=== PATIENT | female | born 1960 | race American Indian/Alaskan Native ===

== ENCOUNTER 2016-10-16 17:06 | Emergency (ER) | payer MEDICARE ==
[2016-10-16 17:25] VITALS: BP 222/117
== END 2016-10-16 21:15 | disposition left against medical advice (07) ==
LOC: ED 17:06
DX: R51 Headache (principal); M54.5 Low back pain; I10 Essential (primary) hypertension; M19.90 Unspecified osteoarthritis, unspecified site; V89.2XXA Person injured in unspecified motor-vehicle accident, traffic, initial encounter; Y93.89 Activity, other specified; Y99.9 Unspecified external cause status; Y92.410 Unspecified street and highway as the place of occurrence of the external cause; Z53.21 Procedure and treatment not carried out due to patient leaving prior to being seen by health care provider

== ENCOUNTER 2017-01-29 05:13 | Inpatient (IN) | payer MEDICARE ==
[2017-01-29] MEDS ORDERED: CARDIZEM ONE (05:20)
[2017-01-29] MEDS ORDERED: CARDIZEM IV ONE ×2 (05:24→07:02)
--- NOTE | 2017-01-29 05:33 | Emergency Department Report ---
ED Palpitations HPI - General Chief Complaint: Chest Pain Stated Complaint: PALPITATIONS Time Seen by Provider: 01/29/17 05:23 Source: patient, EMS, old records reviewed (previous ER visits no previous admission or cardiac workup other than the EKG available for review) Mode of arrival: Stretcher Limitations: No Limitations - History of Present Illness Initial Comments: 56 year old female with a past medical history hypertension presents to the hospital complaining of palpitations and shortness of breath. Patient has been having intermittent palpitations for the last 3 days. This morning she woke up from sleep with sudden worsening of symptoms. Positive associated shortness of breath, palpitations, and mild headache reported. Patient denies chest pain, nausea, vomiting, or diaphoresis. Denies previous history of arrhythmia or cardiac disease. - Related Data Home Medications Medication Instructions Recorded Confirmed Last Taken Gabapentin [Neurontin] 1 cap PO QAM 01/29/17 01/29/17 Unknown Gabapentin [Neurontin] 2 cap PO QPM 01/29/17 01/29/17 Unknown Ibuprofen [Motrin] 800 mg PO Q8HR PRN 01/29/17 01/29/17 Unknown Nortriptyline [Pamelor] 50 mg PO QAM 01/29/17 01/29/17 Unknown Nortriptyline [Pamelor] 100 mg PO QPM 01/29/17 01/29/17 Unknown Oxycodone HCl [oxyCODONE TAB] 10 mg PO BID PRN 01/29/17 01/29/17 Unknown Allergies Allergy/AdvReac Type Severity Reaction Status Date / Time No Known Allergies Allergy Verified 01/29/17 05:27 ED Review of Systems ROS: Stated complaint: PALPITATIONS Other details as noted in HPI Comment: All other systems reviewed and negative Other: Constitutional: No fevers chills Eyes: No eye pain visual changes ENT: No ear pain or throat pain Neck: Denies pain Respiratory: Denies cough wheezing shortness of breath Cardiovascular: Denies chest pain, palpitations, syncope GI: Denies abdominal pain, nausea, vomiting, diarrhea : Denies dysuria Musculoskeletal: Denies back pain Skin: Denies rash, lesions, erythema Neurologic: Denies headache, numbness, weakness Psychiatric: Denies suicidal ideation, hallucinations ED Past Medical Hx - Past Medical History Previous Medical History?: Yes Hx Hypertension: Yes (nonconpliant with meds) Additional medical history: Degenerative disc disease, arthritis - Surgical History Past Surgical History?: Yes Hx Appendectomy: Yes Additional Surgical History: Tubaligation and Uterine fibroids removed - Social History Smoking Status: Never Smoker Substance Use Type: Alcohol - Medications Home Medications: Home Medications Medication Instructions Recorded Confirmed Last Taken Type Gabapentin [Neurontin] 1 cap PO QAM 01/29/17 01/29/17 Unknown History Gabapentin [Neurontin] 2 cap PO QPM 01/29/17 01/29/17 Unknown History Ibuprofen [Motrin] 800 mg PO Q8HR PRN 01/29/17 01/29/17 Unknown History Nortriptyline [Pamelor] 50 mg PO QAM 01/29/17 01/29/17 Unknown History Nortriptyline [Pamelor] 100 mg PO QPM 01/29/17 01/29/17 Unknown History Oxycodone HCl [oxyCODONE TAB] 10 mg PO BID PRN 01/29/17 01/29/17 Unknown History ED Physical Exam - General Limitations: No Limitations - Other Other exam information: General: No limitations, patient is alert in no acute distress Head exam: Atraumatic, normocephalic Eyes exam: Normal appearance, pupils equal reactive to light, extraocular movements intact ENT: Moist mucous membrane, normal oropharynx Neck exam: Normal inspection, full range of motion, no meningismus nontender Respiratory exam: Clear to auscultation bilateral, no wheezes, rales, crackles Cardiovascular: Tachycardic regular rate Abdomen: Soft, nondistended, and nontender, with normal bowel sounds, no rebound, or guarding Extremity: Full range of motion normal inspection no deformity Back: Normal Inspection, full range of motion, no tenderness Neurologic: Alert, oriented x3, cranial nerves intact, no motor or sensory deficit Psychiatric: normal affect, normal mood Skin: Warm, dry, intact ED Course Vital Signs 01/29/17 01/29/17 05:16 05:27 Pulse Rate 150 H 152 H Respiratory 20 Rate Blood Pressure 169/124 167/111 O2 Sat by Pulse 99 Oximetry - Reevaluation(s) Reevaluation #1: 01/29/17 05:32 Patient received Cardizem 20 mg bolus with improvement in heart rate EKG ordered - Consultations Consultation #1: 01/29/17 05:50 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 Lainez Recommend Lovenox for DVT prophylaxis versus treatment since patient is not currently in afib/flutter. Will consult ED Medical Decision Making - Lab Data Result diagrams: 01/29/17 05:29 01/29/17 05:29 Lab Results 01/29/17 01/29/17 01/29/17 Range/Units 05:29 05:29 05:29 WBC 13.4 H (4.5-11.0) K/mm3 RBC 4.92 (3.65-5.03) M/mm3 Hgb 13.0 (10.1-14.3) gm/dl Hct 40.0 (30.3-42.9) % MCV 81 (79-97) fl MCH 26 L (28-32) pg MCHC 33 (30-34) % RDW 14.5 (13.2-15.2) % Plt Count 331 (140-440) K/mm3 Lymph % (Auto) 25.5 (13.4-35.0) % Giles % (Auto) 7.1 (0.0-7.3) % Eos % (Auto) 1.4 (0.0-4.3) % Baso % (Auto) 0.7 (0.0-1.8) % Lymph # 3.4 (1.2-5.4) K/mm3 Giles # 0.9 H (0.0-0.8) K/mm3 Eos # 0.2 (0.0-0.4) K/mm3 Baso # 0.1 (0.0-0.1) K/mm3 Seg Neutrophils % 65.3 (40.0-70.0) % Seg Neutrophils # 8.8 H (1.8-7.7) K/mm3 PT 13.3 (12.2-14.9) Sec. INR 0.96 (0.87-1.13) APTT 28.3 (24.2-36.6) Sec. Sodium 139 (137-145) mmol/L Potassium 3.5 L (3.6-5.0) mmol/L Chloride 99.0 (98-107) mmol/L Carbon Dioxide 25 (22-30) mmol/L Anion Gap 19 mmol/L BUN 25 H (7-17) mg/dL Creatinine 0.9 (0.7-1.2) mg/dL Estimated GFR > 60 ml/min BUN/Creatinine Ratio 27.77 % Glucose 119 H (65-100) mg/dL Calcium 9.8 (8.4-10.2) mg/dL Magnesium 1.80 (1.7-2.3) mg/dL Total Creatine Kinase 247 H (30-135) units/L CK-MB (CK-2) 3.5 (0.0-4.0) ng/mL CK-MB (CK-2) Rel Index 1.4 (0-4) - EKG Data -: EKG Interpreted by Me (A flutter 2-1 block rate [address] elevation ID) - EKG Data When compared to previous EKG there are: changes noted (compared to 01/19/2015 sinus rhythm) 01/29/17 05:43 EKG status post cardizem 20mg shows sinus rhythm rate 85 with LVH and nonspecific T-wave abnormality. - Radiology Data Radiology results: image reviewed (chest x-ray: No acute findings read by me) - Medical Decision Making Plan today patient to hospital further cardiac evaluation. Dr. Jefferson informed. - Differential Diagnosis A. fib, a flutter, sinus tach, SVT, thyroid disease, heart disease Critical Care Time: No Critical care attestation.: If time is entered above; I have spent that time in minutes in the direct care of this critically ill patient, excluding procedure time. ED Disposition Clinical Impression: Atrial flutter with rapid ventricular response, HTN (hypertension) Disposition: OP ADMIT IP TO THIS HOSP Is pt being admited?: Yes Does the pt Need Aspirin: No Condition: Stable Time of Disposition: 05:54 (Dr Jefferson/hosp)
[2017-01-29 05:45] LABS: Basophils % (Auto) 0.7 % (0.0-1.8); Eosinophils % (Auto) 1.4 % (0.0-4.3); Mean Corpuscular HGB Conc 33 % (30-34); Mean Corpuscular Hemoglobin 26 pg (28-32); Mean Corpuscular Volume 81 fl (79-97); Platelet Count 331 K/mm3 (140-440); Red Blood Count 4.92 M/mm3 (3.65-5.03); Red Cell Distribution Width 14.5 % (13.2-15.2); White Blood Count 13.4 K/mm3 (4.5-11.0)
[2017-01-29 05:54] LABS: INR 0.96 (0.87-1.13)
[2017-01-29 05:55] LABS: Partial Thromboplastin Time 28.3 Sec. (24.2-36.6)
[2017-01-29] MEDS ORDERED: CARDIZEM/D5W 100MG/100ML 100 MG/100 ML BAG IV SCH (06:00)
[2017-01-29 06:03] LABS: Creatine Kinase MB 3.5 ng/mL (0.0-4.0)
[2017-01-29 06:04] LABS: Anion Gap 19 mmol/L; BUN/Creatinine Ratio 27.77; Blood Urea Nitrogen 25 mg/dL (7-17); Calcium 9.8 mg/dL (8.4-10.2); Carbon Dioxide 25 mmol/L (22-30); Creatine Kinase 247 units/L (30-135); Glucose 119 mg/dL (65-100); Potassium 3.5 mmol/L (3.6-5.0); Sodium 139 mmol/L (137-145)
--- NOTE | 2017-01-29 07:27 | Admit Criteria Form ---
Admission Criteria Documentation: CARDIOLOGY GRG Clinical Indications for Admission to Inpatient Care ( Place 'X' for any and all applicable criteria): Hospital admission is needed for appropriate care of the patient because of ANY ONE of the following (1): [ ] I. Hemodynamic instability as indicated by ALL of the following (1)(2)(3) (4)(5) [ ]a) Vital signs or other findings not as expected for chronic patient condition or baseline [ ]b) Instability indicated by ANY ONE of the following: [ ]i) Hypotension [ ]ii) Symptomatic Tachycardia unresponsive to treatment ( e.g., analgesia, fluids, sedation as indicated) [ ]iii) Inadequate perfusion indicated by ANY ONE of the following: [ ] 1) Lactic acidosis (> 2 mmol/L) [ ] 2) New abnormal capillary refill (> 3 seconds) [ ] 3) Reduced urine output [ ] 4) New altered mental status [ ]iv) Orthostatic vital sign changes unresponsive to treatment (e.g., fluids) [ ]v) IV inotropic or vasopressor medication required to maintain adequate blood pressure or perfusion [ ] II. Severe heart failure as indicated by ANY ONE of the following(17)(18) [ ]a) Respiratory distress [ ]b) Hypotension [ ]c) Anasarca (refractory to outpatient therapy) [ ]d) Cardiac arrhythmias of immediate concern [ ]e) Myocardial ischemia [X] III. Cardiac arrhythmias or findings of immediate concern indicated by ANY ONE of the following (19)(20): [ ] a) Heart rhythms that are inherently dangerous or unstable indicated by ANY ONE of the following (21)(22)(23): [ ] i) Resuscitated ventricular fibrillation or cardiac arrest [ ] ii) Ventricular escape rhythm [ ] iii) Sustained ventricular tachycardia (30 seconds or more of ventricular rhythm at greater than 100 beats per minute) [ ] iv) Nonsustained ventricular tachycardia and ANY ONE of the following: [ ] 1) Suspected cardiac ischemia as cause or consequence of ventricular tachycardia [ ] 2) In setting of acute myocarditis [ ] b) Unstable cardiac conduction defects indicated by ANY ONE of the following(23)(24)(25) [ ] i) Type II second-degree atrioventricular block [ ]ii) Third-degree atrioventricular block [ ]iii) New-onset left bundle branch block with suspected myocardial ischemia [X]c) Any heart rhythm and ANY ONE of the following (21)(22)(26)(27) (28) [X] i) Continuous long-term ECG monitoring needed (e.g., initiation of drug requiring monitoring for more than 24 hours) [ ] ii) Patient has automatic implanted cardioverter defibrillator that is repeatedly firing, malfunctioning, or in need of immediate adjustment of settings beyond the scope of ambulatory or observation care [ ]d) Heart rhythms of concern due to ANY ONE of the following: [ ] i) Hypotension [ ] ii) Respiratory distress [ ] iii) Association with other significant symptoms (e.g., bradycardia with syncope or ongoing dizziness, supraventricular tachycardia with chest pain (14)(15)(17) [ ] IV. Monitoring for cardiac contusion beyond the scope of observation care needed [A](30)(31)(32) [ ] V. Surgical or device complication (e.g., valve replacement complication , pacemaker dysfunction) (35)(41)(44)(45)(46) [ ] . Inpatient palliative care needed. [B](49) Also use Inpatient Palliative Care Criteria [ ] VII. Nonbacterial thrombotic (marantic) endocarditis (36)(43)(47)(48) [ ] VIII. Cardiology condition, symptom, or finding for which emergency and observation care has failed or are not considered appropriate. [ ] IX. Acute valvular disease requiring inpatient as indicated by ANY ONE of the following (41) [ ]a) Acute valvular regurgitation (42) [ ]b) Noninfectious valvulitis (43) [ ]c) Obstructive valve thrombosis [ ]d) Paravalvular leak [ ]e) Other significant valvular disorder remaining after emergency or observation level of care (as appropriate) [ ]X. Pericardial disease requiring inpatient treatment as indicated by ANY ONE of the following (33)(34)(35)(36)(37) [ ]a) Suspected tamponade (38)(39)(40) [ ]b) Hemopericardium [ ]c) Other significant pericardial disorder remaining after emergency or observation level of care (as appropriate) [ ] XI. Cardiac ischemia beyond scope of emergency and observation care. [ ] XII. Hypertension requiring inpatient treatment as indicated by ANY ONE of the following (6)(7)(8) [ ]a) SBP greater than 220 mm Hg or DBP greater than 120 mmHg despite treatment [ ]b) SBP greater than 140 mm Hg or DBP greater than 100 mm Hg with evidence of acute end organ damage as indicated by ANY ONE of the following [ ] i) Altered mental status [ ] ii) Acute renal failure as indicated by new onset of ANY ONE of the following (9)(10)(11)(12)(13) [ ]1) 3-fold rise in serum creatinine from baseline [ ]2) Serum creatinine greater than 4 mg/dL ( 354 micromoles/L) with acute rise greater than 0.5 mg/dL (44.2 micromoles/L) [ ]3) Reduction of more than 75% in estimated glomerular filtration rate from baseline [ ]4) Estimated glomerular filtration rate less than 35 mL/min/1.73m2 (0.59 mL/sec/1.73m2) in child up to 18 years of age [ ]5) Cessation of urine output indicated by ALL of the following [ ]A. Adequate volume status [ ]B. Inadequate urine output as indicated by ANY ONE of the following [ ]a. Urine output less than 0.3 mL/kg/hr for 24 hours [ ]b. Anuria (urine output less than 0.1 mL/kg/hr) for 12 hours [ ] iii) Aortic dissection [ ] iv) Myocardial Ischemia [ ] v) Left ventricular heart failure [ ]vi) Retinal Hemorrhage [ ]vii) Other significant finding [ ]c) Hypertension in child requiring inpatient treatment as indicated by ALL of the following(14)(15)(16) [ ] i) Outpatient treatment not effective, not available, or not appropriate [ ]ii) SBP or DBP greater than 95th percentile for age [ ]iii) Evidence of acute end organ damage as indicated by ANY ONE of the following [ ]1) Altered mental status [ ]2) Acute renal failure as indicated by new onset of ANY ONE of the following(9)(10)(11)(12)(13) [ ]A. 3-fold rise in serum creatinine from baseline [ ]B. Serum creatinine greater than 4 mg/dL (354 micromoles/L) with acute rise greater than 0.5 mg/dL (44.2 micromoles/L) [ ]C. Reduction of more than 75% in estimated glomerular filtration rate from baseline [ ]D. Estimated glomerular filtration rate less than 35 mL/min/1.73m2 (0.59 mL/sec/1.73m2) in child up to 18 years of age [ ]E. Cessation of urine output indicated by ALL of the following [ ]a. Adequate volume status [ ]b. Inadequate urine output as indicated by ANY ONE of the following [ ]i) Urine output less than 0.3 mL/kg/hr for 24 hours [ ]ii) Anuria ( urine output less than 0.1 mL/kg/hr) for 12 hours [ ]3) Severe headache [ ]4) Visual disturbance [ ]5) Retinal hemorrhage [ ]6) Other significant finding [ ]XIII. Complications of transplanted heart indicated by ANY ONE of the following(61): [ ]a) Acute graft rejection requiring inpatient management (eg, intravenous immunosuppression)(62)(63) [ ]b) Acute graft heart failure indicated by ANY ONE of the following(64): [ ]i) Hemodynamic instability [ ]ii) Cardiac arrhythmias of immediate concern [ ]iii) Pulmonary edema that is very severe (eg, mechanical ventilation needed, imminent or likely, need for 100% oxygen to keep oxygen saturation above 90%) [ ]iv) Pulmonary edema that is persistent as indicated by ALL of the following: [ ]1) New need for oxygen therapy to keep oxygen saturation above 90% (or increased FiO2 need from baseline) [ ]2) Has not improved sufficiently with emergency department or observation care IV diuretics or other heart failure treatments[E] [ ]v) Altered mental status that is severe or persistent [ ]vi) Increased creatinine (new on laboratory test) with reduction of more than 50% in estimated glomerular filtration rate from baseline [ ]vii) Progressively (ongoing) rising creatinine (known from past laboratory test) with reduction of more than 25% in estimated glomerular filtration rate from baseline [ ]viii) Acute renal failure [ ]ix) Acute peripheral ischemia (eg, examination shows pulseless, cool, mottled, or cyanotic extremity) [ ]x) Pulmonary artery catheter monitoring needed [ ]xi) Other sign or symptom of heart failure requiring inpatient treatment (ie, too severe or not responsive to outpatient and observation care treatment) [ ]c) Infection requiring inpatient management (eg, Hemodynamic instability, need for intravenous antimicrobial treatment)(66)(67)(68)(69)(70) [ ]d) Cardiac allograft vasculopathy requiring inpatient management ( eg evidence of cardiac ischemia)(71) [ ]e) Other complication of transplanted heart (eg, stroke, severe pulmonary hypertension, severe valvular dysfunction) requiring inpatient management(72) The original [facility] [employer] content created by [facility] [employer] has been revised. The portions of the content which have been revised are identified through the use of italic text or in bold, and [facility] ([facility]) has neither reviewed nor approved the modified material. All other unmodified content is copyright [facility] [employer]. Please see references footnoted in the original [facility] [employer] edition 2016 Admission Criteria Met: Yes
[2017-01-29] MEDS ORDERED: TYLENOL PO PRN (07:58)
[2017-01-29] MEDS ORDERED: DULCOLAX PR PRN (07:58)
[2017-01-29] MEDS ORDERED: ZOFRAN IV PRN (07:58)
--- NOTE | 2017-01-29 08:01 | History and Physical Report ---
<BAUDILIO MEEK - Last Filed: 01/29/17 09:26> History of Present Illness Date of examination: 01/29/17 Date of admission: 01/29/2017 Chief complaint: Shortness of breath History of present illness: Patient is 56 years old, female with past medical history of hypertension, spinal stenosis who presents to the hospital complaining of palpitations and shortness of breath. Patient has been having intermittent palpitations for the last three days. Patient states that with 3 days of worsening dyspnea on light exertion. Just over 3 days ago the patient was at her normal baseline state of health. Now she has had progressive worsening of her dyspnea on exertion (CARRILLO) to where she cannot walk across a room or talk while sitting up without becoming short of breath. Patient states that this morning around 4:00 Am she awoke free of pain, however upon walking to the bathroom, her shortness of breath increased in severity, she could not catch her breath and got worried and called 911 and they EMS brought her to the emergency room. Her shortness of breath with associated with heart palpitations , and mild headache reported. She denies syncope, or recent chest pains. She denied nausea, vomiting, diaphoresis, dizziness, or loss of consciousness. She carrillo not take anything to relief her shortness of breath. Her electrocardiogram on presentation showed A-flutter 2-1 block rate [address] elevation [place]. Patient given 20mg IV Cardizem and converted to sinus rhythm rate 85 with LVH and nonspecific T-wave abnormality. Past History Past Medical History: hypertension, other (Spinal stenosis ) Past Surgical History: No surgical history Social history: Lives alone. denies: smoking, alcohol abuse Family history: hypertension Medications and Allergies Allergies Allergy/AdvReac Type Severity Reaction Status Date / Time No Known Allergies Allergy Verified 01/29/17 05:27 Home Medications Medication Instructions Recorded Confirmed Last Taken Type Gabapentin [Neurontin] 1 cap PO QAM 01/29/17 01/29/17 Unknown History Gabapentin [Neurontin] 2 cap PO QPM 01/29/17 01/29/17 Unknown History Ibuprofen [Motrin] 800 mg PO Q8HR PRN 01/29/17 01/29/17 Unknown History Nortriptyline [Pamelor] 50 mg PO QAM 01/29/17 01/29/17 Unknown History Nortriptyline [Pamelor] 100 mg PO QPM 01/29/17 01/29/17 Unknown History Oxycodone HCl [oxyCODONE TAB] 10 mg PO BID PRN 01/29/17 01/29/17 Unknown History Active Meds: Active Medications Diltiazem HCl (Cardizem) 60 mg PO Q8HR [facility] Gabapentin (Neurontin) mg PO QAM [facility] Nortriptyline HCl (Pamelor) 50 mg PO QAM [facility] Review of Systems Constitutional: no weight gain, no fever, no chills Ears, nose, mouth and throat: no ear discharge, no tinnitis, no decreased hearing, no nose pain Breasts: no change in shape, no swelling Cardiovascular: lightheadedness, shortness of breath, dyspnea on exertion, paroxysmal nocturnal dyspnea, no orthopnea, no palpitations Respiratory: shortness of breath, no cough, no cough with sputum, no excessive sputum, no hemoptysis Gastrointestinal: no abdominal pain, no nausea, no vomiting, no diarrhea Genitourinary Female: no pelvic pain, no flank pain, no menorrhagia, no dysuria Menstruation: no currently menstrual, no premenarcheal, no post hysterectomy, no ammenorrhea Rectal: no pain, no incontinence Musculoskeletal: no neck stiffness, no neck pain, no shooting arm pain Integumentary: no rash, no pruritis, no redness, no sores Neurological: no paralysis, no weakness, no parathesias, no numbness, no tingling Psychiatric: no anxiety, no memory loss, no change in sleep habits, no sleep disturbances, no insomnia Endocrine: no cold intolerance, no heat intolerance, no polyphagia, no excessive thirst Hematologic/Lymphatic: no easy bruising, no easy bleeding Allergic/Immunologic: no urticaria, no allergic rhinitis, no wheezing Exam - Constitutional Vitals: Temp Pulse Resp BP Pulse Ox 83 17 178/94 100 01/29/17 07:00 01/29/17 07:00 01/29/17 07:00 01/29/17 07:00 General appearance: Present: no acute distress - EENT Eyes: Present: PERRL, EOM intact ENT: hearing intact, clear oral mucosa, dentition normal - Neck Neck: Present: supple - Respiratory Respiratory effort: normal Respiratory: bilateral: CTA - Cardiovascular Heart rate: 135 Rhythm: irregularly irregular - Extremities Extremities: no ischemia, No edema Peripheral Pulses: within normal limits - Abdominal General gastrointestinal: Present: soft, non-tender Female genitourinary: Present: deferred - Rectal Rectal Exam: deferred - Integumentary Integumentary: Present: clear, warm, dry - Musculoskeletal Musculoskeletal: strength equal bilaterally - Psychiatric Psychiatric: appropriate mood/affect - Neurologic Neurologic: CNII-XII intact - Allied Health Allied health notes reviewed: nursing Results - Labs CBC & Chem 7: 01/29/17 05:29 01/29/17 05:29 Labs: Laboratory Last Values WBC 13.4 K/mm3 (4.5-11.0) H 01/29/17 05:29 RBC 4.92 M/mm3 (3.65-5.03) 01/29/17 05:29 Hgb 13.0 gm/dl (10.1-14.3) 01/29/17 05:29 Hct 40.0 % (30.3-42.9) 01/29/17 05:29 MCV 81 fl (79-97) 01/29/17 05:29 MCH 26 pg (28-32) L 01/29/17 05:29 MCHC 33 % (30-34) 01/29/17 05:29 RDW 14.5 % (13.2-15.2) 01/29/17 05:29 Plt Count 331 K/mm3 (140-440) 01/29/17 05:29 Lymph % (Auto) 25.5 % (13.4-35.0) 01/29/17 05:29 [place] % (Auto) 7.1 % (0.0-7.3) 01/29/17 05:29 Eos % (Auto) 1.4 % (0.0-4.3) 01/29/17 05:29 Baso % (Auto) 0.7 % (0.0-1.8) 01/29/17 05:29 Lymph # 3.4 K/mm3 (1.2-5.4) 01/29/17 05:29 [place] # 0.9 K/mm3 (0.0-0.8) H 01/29/17 05:29 Eos # 0.2 K/mm3 (0.0-0.4) 01/29/17 05:29 Baso # 0.1 K/mm3 (0.0-0.1) 01/29/17 05:29 Seg Neutrophils % 65.3 % (40.0-70.0) 01/29/17 05:29 Seg Neutrophils # 8.8 K/mm3 (1.8-7.7) H 01/29/17 05:29 PT 13.3 Sec. (12.2-14.9) 01/29/17 05:29 INR 0.96 (0.87-1.13) 01/29/17 05:29 APTT 28.3 Sec. (24.2-36.6) 01/29/17 05:29 Sodium 139 mmol/L (137-145) 01/29/17 05:29 Potassium 3.5 mmol/L (3.6-5.0) L 01/29/17 05:29 Chloride 99.0 mmol/L (98-107) 01/29/17 05:29 Carbon Dioxide 25 mmol/L (22-30) 01/29/17 05:29 Anion Gap 19 mmol/L 01/29/17 05:29 BUN 25 mg/dL (7-17) H 01/29/17 05:29 Creatinine 0.9 mg/dL (0.7-1.2) 01/29/17 05:29 Estimated GFR > 60 ml/min 01/29/17 05:29 BUN/Creatinine Ratio 27.77 % 01/29/17 05:29 Glucose 119 mg/dL (65-100) H 01/29/17 05:29 Calcium 9.8 mg/dL (8.4-10.2) 01/29/17 05:29 Magnesium 1.80 mg/dL (1.7-2.3) 01/29/17 05:29 Total Creatine Kinase 247 units/L (30-135) H 01/29/17 05:29 CK-MB (CK-2) 3.5 ng/mL (0.0-4.0) 01/29/17 05:29 CK-MB (CK-2) Rel Index 1.4 (0-4) 01/29/17 05:29 TSH 2.260 mlU/mL (0.270-4.200) 01/29/17 05:29 Free T4 1.16 ng/dL (0.76-1.46) 07/24/17 05:29 - Imaging and Cardiology Chest x-ray: image reviewed (normal heart and pulmonary vasculature. The lungs are normally expanded and clear) Assessment and Plan Assessment and plan: Patient is 56 years old, female with past medical history of hypertension, spinal stenosis who presents to the hospital complaining of palpitations and shortness of breath. Her electrocardiogram on presentation showed A-flutter 2-1 block rate [address] elevation [place]. Patient given 20mg IV Cardizem and converted to sinus rhythm rate 85 with LVH and nonspecific T- wave abnormality. ASSESSMENT/PLAN Arterial fibrillation/A-flutter We will admit patient to Telemetry floor. Patient given 20mg IV Cardizem in the ED and converted to sinus rhythm rate 85 with LVH and nonspecific T-wave abnormality. Started on Cardizem 40 mg by mouth every 8 hours IV fluid hydration Cardiology consulted for further evaluation Malignant hypertension Started on Coreg 12.5 twice a day Started on Hydralazine IV when necessary Discontinued Losartan per patient request. Patient believe that is the cause of the irregular heart rate. I discussed with the patient that is that not the cause of her A-fib but still does not want take it anymore. Hypokalemia Replaced with 40 in the MICU potassium Closely monitor electrolytes DVT prophylaxis Lovenox <NAVARRO STANLEY - Last Filed: 01/29/17 15:11> History of Present Illness Date of admission: 01/29/17 07:58 Medications and Allergies Active Meds: Active Medications Acetaminophen (Tylenol) 650 mg PO Q4H PRN PRN Reason: Pain MILD(1-3)/Fever >100.5/HERNANDEZ Apixaban (Eliquis) 5 mg PO Q12HR [facility] PRN Reason: Protocol Bisacodyl (Dulcolax) 10 mg [place] QDAY PRN PRN Reason: Constipation unrelieved by MOM Carvedilol (Coreg) 12.5 mg PO BID [facility] Last Admin: 01/29/17 14:22 Dose: 12.5 mg Clonidine HCl (Catapres) 0.1 mg PO Q4H PRN PRN Reason: SBP >150 Diltiazem HCl (Cardizem) 60 mg PO Q8HR [facility] Last Admin: 01/29/17 14:21 Dose: 60 mg Doxazosin Mesylate (Cardura) 2 mg PO QPM [facility] Enoxaparin Sodium (Lovenox) 40 mg SUB-Q QDAY [facility] Stop: 01/29/17 18:21 Gabapentin (Neurontin) 100 mg PO QAM [facility] Last Admin: 01/29/17 14:22 Dose: 100 mg Hydralazine HCl (Apresoline) 10 mg IV Q4H PRN PRN Reason: SBP>160 Last Admin: 01/29/17 09:50 Dose: 10 mg Morphine Sulfate (Morphine) 2 mg IV Q4H PRN PRN Reason: Pain, Moderate (4-6) Last Admin: 01/29/17 09:56 Dose: 2 mg Nortriptyline HCl (Pamelor) 50 mg PO QAM [facility] Ondansetron HCl (Zofran) 4 mg IV Q4H PRN PRN Reason: N/V unrelieved by Ryan Last Admin: 01/29/17 09:54 Dose: 4 mg Valsartan (Diovan) 160 mg PO BID [facility] Last Admin: 01/29/17 14:21 Dose: 160 mg Exam - Constitutional Vitals: Temp Pulse Resp BP Pulse Ox 98.1 F 84 20 217/80 98 01/29/17 11:30 01/29/17 11:30 01/29/17 11:30 01/29/17 14:21 01/29/17 11:30 Results - Labs CBC & Chem 7: 01/29/17 05:29 01/29/17 05:29 Labs: Laboratory Last Values WBC 13.4 K/mm3 (4.5-11.0) H 01/29/17 05:29 RBC 4.92 M/mm3 (3.65-5.03) 01/29/17 05:29 Hgb 13.0 gm/dl (10.1-14.3) 01/29/17 05:29 Hct 40.0 % (30.3-42.9) 01/29/17 05:29 MCV 81 fl (79-97) 01/29/17 05:29 MCH 26 pg (28-32) L 01/29/17 05:29 MCHC 33 % (30-34) 01/29/17 05:29 RDW 14.5 % (13.2-15.2) 01/29/17 05:29 Plt Count 331 K/mm3 (140-440) 01/29/17 05:29 Lymph % (Auto) 25.5 % (13.4-35.0) 01/29/17 05:29 [place] % (Auto) 7.1 % (0.0-7.3) 01/29/17 05:29 Eos % (Auto) 1.4 % (0.0-4.3) 01/29/17 05:29 Baso % (Auto) 0.7 % (0.0-1.8) 01/29/17 05:29 Lymph # 3.4 K/mm3 (1.2-5.4) 01/29/17 05:29 [place] # 0.9 K/mm3 (0.0-0.8) H 01/29/17 05:29 Eos # 0.2 K/mm3 (0.0-0.4) 01/29/17 05:29 Baso # 0.1 K/mm3 (0.0-0.1) 01/29/17 05:29 Seg Neutrophils % 65.3 % (40.0-70.0) 01/29/17 05:29 Seg Neutrophils # 8.8 K/mm3 (1.8-7.7) H 01/29/17 05:29 PT 13.3 Sec. (12.2-14.9) 01/29/17 05:29 INR 0.96 (0.87-1.13) 01/29/17 05:29 APTT 28.3 Sec. (24.2-36.6) 01/29/17 05:29 Sodium 139 mmol/L (137-145) 01/29/17 05:29 Potassium 3.5 mmol/L (3.6-5.0) L 01/29/17 05:29 Chloride 99.0 mmol/L (98-107) 01/29/17 05:29 Carbon Dioxide 25 mmol/L (22-30) 01/29/17 05:29 Anion Gap 19 mmol/L 01/29/17 05:29 BUN 25 mg/dL (7-17) H 01/29/17 05:29 Creatinine 0.9 mg/dL (0.7-1.2) 01/29/17 05:29 Estimated GFR > 60 ml/min 01/29/17 05:29 BUN/Creatinine Ratio 27.77 % 01/29/17 05:29 Glucose 119 mg/dL (65-100) H 01/29/17 05:29 Calcium 9.8 mg/dL (8.4-10.2) 01/29/17 05:29 Magnesium 1.80 mg/dL (1.7-2.3) 01/29/17 05:29 Total Creatine Kinase 247 units/L (30-135) H 01/29/17 05:29 CK-MB (CK-2) 3.5 ng/mL (0.0-4.0) 01/29/17 05:29 CK-MB (CK-2) Rel Index 1.4 (0-4) 01/29/17 05:29 TSH 2.260 mlU/mL (0.270-4.200) 01/29/17 05:29 Free T4 1.16 ng/dL (0.76-1.46) 01/29/17 05:29 - Imaging and Cardiology EKG: image reviewed Assessment and Plan Assessment and plan: Have seen and examined patient with nurse practitioner and I agree with the above findings. I saw and evaluated the patient. I agree with the findings and the plan of care as documented in the Nurse Practitioner's~note, with the following corrections and additions. Advance Directives: Yes VTE prophylaxis?: Chemical Plan of care discussed with patient/family: Yes - Patient Problems (1) Atrial flutter with rapid ventricular response Current Visit: Yes Status: Acute (2) HTN (hypertension) Current Visit: Yes Status: Acute Qualifiers: Hypertension type: H (3) Accelerated hypertension Current Visit: No Status: Acute
[2017-01-29] MEDS ORDERED: APRESOLINE IV PRN (08:02)
[2017-01-29] MEDS ORDERED: K-DUR PO ONE ×2 (08:20→09:43)
--- NOTE | 2017-01-29 08:29 | XRay Report ---
AP CHEST :01/29/17 05:13:00 CLINICAL: Difficulty breathing. COMPARISON:None. FINDINGS: Normal heart and pulmonary vasculature. The lungs are normally expanded and clear. The bones and soft tissues are normal. IMPRESSION: Normal.
[2017-01-29] MEDS ORDERED: APRESOLINE ONE (09:44)
[2017-01-29] MEDS ORDERED: MORPHINE ONE (09:51)
[2017-01-29] MEDS ORDERED: ZOFRAN ONE (09:51)
[2017-01-29] MEDS: MORPHINE IV PRN ×2 (09:56→22:05)
[2017-01-29] MEDS ORDERED: LOVENOX SUB-Q SCH (10:00)
--- NOTE | 2017-01-29 12:19 | Consultation ---
History of Present Illness Consult date: 01/29/17 Consult reason: other (Atrial flutter) History of present illness: This is a 56yr old woman with a history of Neuropathy, chronic back pain, Hypertension, Sleep apnea noncompliant with Cpap machine. There is no prior cardiac history. She was brought to this hospital with complaints of palpitations associated with shortness of breath, chest pain and diaphoresis. She denies syncope. She was found to be in atrial flutter with rapid ventricular rate of uncertain duration. She was treated with intravenous Cardizem in the ED. She has since returned to a sinus rhythm. Initial labs shows a normal TSH of 2.2. Cardiology consultation requested. Past History Social history: Lives alone. denies: smoking, alcohol abuse Family history: hypertension Medications and Allergies Allergies Allergy/AdvReac Type Severity Reaction Status Date / Time No Known Allergies Allergy Verified 01/29/17 05:27 Home Medications Medication Instructions Recorded Confirmed Last Taken Type Gabapentin [Neurontin] 1 cap PO QAM 01/29/17 01/29/17 Unknown History Gabapentin [Neurontin] 2 cap PO QPM 01/29/17 01/29/17 Unknown History Ibuprofen [Motrin] 800 mg PO Q8HR PRN 01/29/17 01/29/17 Unknown History Nortriptyline [Pamelor] 50 mg PO QAM 01/29/17 01/29/17 Unknown History Nortriptyline [Pamelor] 100 mg PO QPM 01/29/17 01/29/17 Unknown History Oxycodone HCl [oxyCODONE TAB] 10 mg PO BID PRN 01/29/17 01/29/17 Unknown History Active Meds: Active Medications Acetaminophen (Tylenol) 650 mg PO Q4H PRN PRN Reason: Pain MILD(1-3)/Fever >100.5/HERNANDEZ Bisacodyl (Dulcolax) 10 mg [place] QDAY PRN PRN Reason: Constipation unrelieved by MOM Carvedilol (Coreg) 12.5 mg PO BID [facility] Diltiazem HCl (Cardizem) 60 mg PO Q8HR [facility] Enoxaparin Sodium (Lovenox) 40 mg SUB-Q QDAY [facility] Gabapentin (Neurontin) 100 mg PO QAM [facility] Hydralazine HCl (Apresoline) 10 mg IV Q4H PRN PRN Reason: SBP>160 Last Admin: 01/29/17 09:50 Dose: 10 mg Morphine Sulfate (Morphine) 2 mg IV Q4H PRN PRN Reason: Pain, Moderate (4-6) Last Admin: 01/29/17 09:56 Dose: 2 mg Nortriptyline HCl (Pamelor) 50 mg PO QAM [facility] Ondansetron HCl (Zofran) 4 mg IV Q4H PRN PRN Reason: N/V unrelieved by Reglan Last Admin: 01/29/17 09:54 Dose: 4 mg Physical Examination Vital Signs BP Pulse Ox 169/124 97 01/29/17 05:07 01/29/17 05:07 General appearance: no acute distress HEENT: Positive: PERRL Neck: Positive: trachea midline Cardiac: Positive: Reg Rate and Rhythm Results 01/29/17 05:29 01/29/17 05:29 Assessment and Plan Atrial flutter with RVR of uncertain duration spontaneously reverted to sinus rhythm normal TSH on oral cardizem for suppression Accelerated HTN Hx of Sleep apnea Hx of Neuropathy Recommendations: Continue cardizem for suppression of Aflutter. Echocardiogram for LVEF assessment. We will get a persantine thallium stress for further cardiac evaluation before discharge.
[2017-01-29] MEDS ORDERED: CATAPRES PO PRN (13:01)
[2017-01-29] MEDS: DIOVAN PO SCH ×2 (14:21→22:08)
[2017-01-29] MEDS: CARDIZEM PO SCH ×2 (14:21→22:06)
[2017-01-29] MEDS: COREG PO SCH ×3 (14:22→22:09)
[2017-01-29] MEDS: NEURONTIN PO SCH (14:22)
[2017-01-29] MEDS: PAMELOR PO SCH (16:21)
[2017-01-29] MEDS: CARDURA PO SCH (18:27)
[2017-01-29] MEDS: ELIQUIS PO SCH (22:07)
[2017-01-30 06:16] LABS: Basophils % (Auto) 0.5 % (0.0-1.8); Hematocrit 36.6 % (30.3-42.9); Mean Corpuscular HGB Conc 33 % (30-34); Mean Corpuscular Hemoglobin 27 pg (28-32); Mean Corpuscular Volume 83 fl (79-97); Platelet Count 296 K/mm3 (140-440); Red Blood Count 4.44 M/mm3 (3.65-5.03); Red Cell Distribution Width 14.7 % (13.2-15.2); White Blood Count 10.3 K/mm3 (4.5-11.0)
[2017-01-30] MEDS: MORPHINE IV PRN (06:20)
[2017-01-30] MEDS: CARDIZEM PO SCH ×3 (06:20→21:53)
[2017-01-30 06:25] LABS: Anion Gap 15 mmol/L; Blood Urea Nitrogen 18 mg/dL (7-17); Calcium 9.1 mg/dL (8.4-10.2); Carbon Dioxide 27 mmol/L (22-30); Chloride 101.4 mmol/L (98-107); Glucose 117 mg/dL (65-100); Potassium 4.1 mmol/L (3.6-5.0); Sodium 139 mmol/L (137-145)
[2017-01-30] MEDS: ELIQUIS PO SCH ×2 (11:04→21:53)
[2017-01-30] MEDS: NEURONTIN PO SCH (11:04)
[2017-01-30] MEDS: PAMELOR PO SCH (11:04)
[2017-01-30] MEDS: COREG PO SCH ×2 (11:06→21:52)
[2017-01-30] MEDS: DIOVAN PO SCH ×2 (11:07→21:53)
[2017-01-30] MEDS ORDERED: COREG PO SCH (12:00)
--- NOTE | 2017-01-30 12:32 | Progress Note ---
Assessment and Plan Atrial flutter, paroxysmal spontaneously reverted to sinus rhythm normal TSH on oral cardizem for suppression initiated on eliquis for oral anticoagulation Accelerated HTN -improved Hx of Sleep apnea Hx of Neuropathy Preserved LVEF on echocardiogram. Recommendations: Continue cardizem and eliquis for her paroxysmal Aflutter. Subjective Date of service: 01/30/17 Interval history: Persantine thallium stress test canceled as pt unable to lie flat. BP improved, currently 128/71. Stable sinus rhythm on telemetry. Objective Vital Signs Temp Pulse Pulse Resp BP BP Pulse Ox 01/30/17 11:07 71 128/71 01/30/17 11:06 71 128/71 01/30/17 09:00 74 01/30/17 07:00 98.3 F 68 20 128/71 100 01/30/17 06:20 84 122/64 01/30/17 04:15 98.5 F 80 20 134/83 98 01/30/17 01:18 74 01/30/17 00:20 98.6 F 86 20 127/60 97 01/29/17 22:09 72 109/52 01/29/17 22:08 72 109/52 01/29/17 22:06 72 109/52 01/29/17 22:05 18 01/29/17 22:00 60 18 01/29/17 20:15 98.3 F 72 20 109/57 98 01/29/17 16:55 98.4 F 64 20 94/45 98 01/29/17 14:21 217/80 - Physical Examination General: No Apparent Distress HEENT: Positive: PERRL Neck: Positive: trachea midline Cardiac: Positive: Reg Rate and Rhythm - Labs and Meds CBC 01/30/17 Range/Units 05:16 WBC 10.3 (4.5-11.0) K/mm3 RBC 4.44 (3.65-5.03) M/mm3 Hgb 12.0 (10.1-14.3) gm/dl Hct 36.6 (30.3-42.9) % Plt Count 296 (140-440) K/mm3 Lymph # 3.4 (1.2-5.4) K/mm3 [place] # 0.8 (0.0-0.8) K/mm3 Eos # 0.2 (0.0-0.4) K/mm3 Baso # 0.1 (0.0-0.1) K/mm3 Comprehensive Metabolic Panel 01/30/17 Range/Units 05:16 Sodium 139 (137-145) mmol/L Potassium 4.1 (3.6-5.0) mmol/L Chloride 101.4 (98-107) mmol/L Carbon Dioxide 27 (22-30) mmol/L BUN 18 H (7-17) mg/dL Creatinine 0.9 (0.7-1.2) mg/dL Glucose 117 H (65-100) mg/dL Calcium 9.1 (8.4-10.2) mg/dL - Imaging and Cardiology EKG: image reviewed
--- NOTE | 2017-01-30 15:17 | Progress Note ---
Assessment and Plan Patient is 56 years old, female with past medical history of hypertension, spinal stenosis who presents to the hospital complaining of palpitations and shortness of breath. Her electrocardiogram on presentation showed A-flutter 2-1 block rate [address] elevation [place]. Patient given 20mg IV Cardizem and converted to sinus rhythm rate 85 with LVH and nonspecific T- wave abnormality. ASSESSMENT/PLAN Arterial fibrillation/A-flutter Patient given 20mg IV Cardizem in the ED and converted to sinus rhythm rate 85 with LVH and nonspecific T-wave abnormality. cont on Cardizem 60 mg by mouth every 8 hours started on eliquis by cardiology An echocardiogram demonstrates normal left ventricle systolic function, ejection fraction 60-65%. The patient could not tolerate a Persantin thallium stress test today, due to claustrophobia. No further cardiac workup was suggested by cardiology Malignant hypertension Started on Coreg 12.5 twice a day cont on Hydralazine IV when necessary Discontinued Losartan per patient request. Patient believe that is the cause of the irregular heart rate eventhough discussed with the patient that is that not the cause of her A-fib but still does not want take it anymore. placed on valsartan, cardizem and Cardura. Hypokalemia Replaced with 40mg KCL Closely monitor electrolytes DVT prophylaxis on eliquis now Disposition: tomorrow if no side effect from eliquis Subjective Date of service: 01/30/17 Interval history: Patient seen and examined. Medical records and medication list reviewed. No acute event overnight noted by the RN. Patient denies any chest pain or difficulty breathing. Patient is tolerating diet. States that worried about starting anticoagulation Discussed plan of care at bedside with patient. Objective - Exam Narrative Exam: GENERAL: well-developed obese AAF lying on bed appeared to be in no discomfort. HEENT: Normocephalic. Atraumatic. No conjunctival congestion or icterus. Patient has moist mucous membranes. NECK: Supple. Trachea midline. CHEST/LUNGS: Clear to auscultated bilaterally, breathing nonlabored. No wheezes crackles or rhonchi. HEART/CARDIOVASCULAR: Regular in rate and rhythm. S1 and S2 positive. ABDOMEN: Abdomen is soft, nontender. Patient has normal bowel sounds. SKIN: There is no rash. Warm and dry. NEURO: No focal motor deficit. Follows command. MUSCULOSKELETAL: No joint effusion or tenderness. EXTRIMITY: No edema, no cyanosis or clubbing. PSYCH: Cooperative. - Constitutional Vitals: Vital Signs - 12hr 01/30/17 01/30/17 01/30/17 04:15 06:20 07:00 Temperature 98.5 F 98.3 F Pulse Rate 84 Pulse Rate [ 80 68 Right Radial] Respiratory 20 20 Rate Blood Pressure 122/64 Blood Pressure 134/83 128/71 [Right Radial Artery] O2 Sat by Pulse 98 100 Oximetry 01/30/17 01/30/17 01/30/17 09:00 11:06 11:07 Temperature Pulse Rate 74 71 71 Pulse Rate [ Right Radial] Respiratory Rate Blood Pressure 128/71 128/71 Blood Pressure [Right Radial Artery] O2 Sat by Pulse Oximetry 01/30/17 01/30/17 12:58 13:28 Temperature 97.6 F Pulse Rate 73 Pulse Rate [ 73 Right Radial] Respiratory 18 Rate Blood Pressure 133/73 Blood Pressure 133/73 [Right Radial Artery] O2 Sat by Pulse 100 Oximetry - Labs CBC & Chem 7: 01/30/17 05:16 01/30/17 05:16 Labs: Abnormal lab results 01/30/17 01/30/17 Range/Units 05:16 05:16 MCH 27 L (28-32) pg [place] % (Auto) 7.9 H (0.0-7.3) % BUN 18 H (7-17) mg/dL Glucose 117 H (65-100) mg/dL
[2017-01-30] MEDS: CARDURA PO SCH (19:56)
[2017-01-30] MEDS ORDERED: PERCOCET 5/325 PO PRN (23:29)
[2017-01-31] MEDS ORDERED: MILK OF MAGNESIA PO PRN (05:11)
[2017-01-31] MEDS: CARDIZEM PO SCH (05:27)
[2017-01-31] MEDS: MORPHINE IV PRN (07:45)
--- NOTE | 2017-01-31 09:24 | Progress Note ---
Assessment and Plan Atrial flutter, paroxysmal spontaneously reverted to sinus rhythm normal TSH on oral cardizem for suppression initiated on eliquis for oral anticoagulation patient could not tolerate a Persantine thallium stress test due to claustrophobia. Accelerated HTN -improved Hx of Sleep apnea Hx of Neuropathy Preserved LVEF, 60-65% on echocardiogram. Recommendations: Continue cardizem and eliquis for her paroxysmal Aflutter. No further cardiac workup is indicated. Stable, cardiac marques. Subjective Date of service: 01/31/17 Interval history: Stable sinus rhythm on telemetry. Objective Vital Signs Temp Pulse Pulse Resp BP BP Pulse Ox 01/31/17 07:35 98.3 F 74 20 141/82 96 01/31/17 05:24 98.4 F 96 H 18 125/65 93 01/31/17 02:36 88 01/31/17 00:07 97.8 F 81 20 119/58 99 01/30/17 20:17 98 F 86 20 140/82 100 01/30/17 19:56 88 142/82 01/30/17 17:49 98.4 F 81 20 134/68 98 01/30/17 13:28 73 133/73 01/30/17 12:58 97.6 F 73 18 133/73 100 01/30/17 11:07 71 128/71 01/30/17 11:06 71 128/71 - Physical Examination General: No Apparent Distress HEENT: Positive: PERRL Neck: Positive: trachea midline Cardiac: Positive: Reg Rate and Rhythm - Imaging and Cardiology EKG: image reviewed
[2017-01-31] MEDS ORDERED: CARDIZEM CD PO SCH (10:00)
[2017-01-31] MEDS: ELIQUIS PO SCH (10:49)
[2017-01-31] MEDS: COREG PO SCH (10:49)
[2017-01-31] MEDS: PAMELOR PO SCH (10:49)
[2017-01-31] MEDS: DIOVAN PO SCH (10:49)
[2017-01-31] MEDS: NEURONTIN PO SCH (10:49)
[2017-01-31 11:34] LABS: Hematocrit 35.8 % (30.3-42.9); Hemoglobin 11.8 gm/dl (10.1-14.3); Mean Corpuscular HGB Conc 33 % (30-34); Mean Corpuscular Hemoglobin 27 pg (28-32); Mean Corpuscular Volume 83 fl (79-97); Platelet Count 259 K/mm3 (140-440); Red Blood Count 4.31 M/mm3 (3.65-5.03); Red Cell Distribution Width 14.4 % (13.2-15.2); White Blood Count 8.7 K/mm3 (4.5-11.0)
[2017-01-31 12:02] VITALS: BP 135/78
--- NOTE | 2017-01-31 13:18 | Discharge Summary ---
Providers - Providers Date of Admission: 01/29/17 07:58 Date of discharge: 01/31/17 Attending physician: KASIA TAYLOR 01/29/17 08:25 Consult to Physician [CONS] Routine Consulting Provider: ALVERTO WINTERS Reason For Exam: New-onset Afib Place consult to:: Marcia Notified:: Selvin Phone number called:: yes If yes, spoke with:: Selvin Time called:: 09:02 Primary care physician: TECHNICAL CLERK Hospitalization Condition: Stable Hospital course: Patient is 56 years old, female with past medical history of hypertension, spinal stenosis who presents to the hospital complaining of palpitations and shortness of breath. Her electrocardiogram on presentation showed A-flutter 2-1 block rate [address] elevation [place]. Patient given 20mg IV Cardizem and converted to sinus rhythm rate 85 with LVH and nonspecific T- wave abnormality. Discharge diagnosis and management: Arterial fibrillation/A-flutter Patient given 20mg IV Cardizem in the ED and converted to sinus rhythm rate 85 with LVH and nonspecific T-wave abnormality. cont on Cardizem 60 mg by mouth every 8 hours started on eliquis by cardiology An echocardiogram demonstrates normal left ventricle systolic function, ejection fraction 60-65%. The patient could not tolerate a Persantin thallium stress test today, due to claustrophobia. No further cardiac workup was suggested by cardiology Malignant hypertension Started on Coreg 12.5 twice a day cont on Hydralazine IV when necessary Discontinued Losartan per patient request. Patient believe that is the cause of the irregular heart rate eventhough discussed with the patient that is that not the cause of her A-fib but still does not want take it anymore. placed on valsartan, cardizem and Cardura. Hypokalemia Replaced with 40mg KCL Closely monitored electrolytes Disposition: DC- TO HOME OR SELFCARE Time spent for discharge: 32 minutes Core Measure Documentation - Palliative Care Palliative Care/ Comfort Measures: Not Applicable - Core Measures Any of the following diagnoses?: none Exam - Physical Exam Narrative exam: GENERAL: well-developed obese AAF lying on bed appeared to be in no discomfort. HEENT: Normocephalic. Atraumatic. No conjunctival congestion or icterus. Patient has moist mucous membranes. NECK: Supple. Trachea midline. CHEST/LUNGS: Clear to auscultated bilaterally, breathing nonlabored. No wheezes crackles or rhonchi. HEART/CARDIOVASCULAR: Regular in rate and rhythm. S1 and S2 positive. ABDOMEN: Abdomen is soft, nontender. Patient has normal bowel sounds. SKIN: There is no rash. Warm and dry. NEURO: No focal motor deficit. Follows command. MUSCULOSKELETAL: No joint effusion or tenderness. EXTRIMITY: No edema, no cyanosis or clubbing. PSYCH: Cooperative. - Constitutional Vitals: Temp Pulse Resp BP Pulse Ox 97.7 F 74 20 135/78 97 01/31/17 11:25 01/31/17 11:39 01/31/17 11:25 01/31/17 11:25 01/31/17 11:25 Plan Activity: advance as tolerated Weight Bearing Status: Weight Bear as Tolerated Diet: low fat, low salt Forms: Discharge Signature Page Prescriptions: Apixaban [Eliquis] 5 mg PO Q12HR #60 tablet Carvedilol [Coreg] 12.5 mg PO BID #60 tablet Diltiazem Cd [Cardizem CD] 180 mg PO QDAY #30 capsule Doxazosin [Cardura] 2 mg PO QPM #30 tablet Valsartan [Diovan] 160 mg PO BID #60 tablet
[2017-01-31] MEDS ORDERED: CITRATE OF MAGNESIA PO ONE (15:00)
== END 2017-01-31 15:35 | disposition home or self-care (01) | DRG 309 ==
LOC: ED 05:13 → 4A 07:58
PROVIDERS: ADMIT Internal Medicine; ATTEND Internal Medicine
DX: I48.92 Unspecified atrial flutter (principal); Z68.41 Body mass index [BMI] 40.0-44.9, adult; I48.91 Unspecified atrial fibrillation; I10 Essential (primary) hypertension; M19.90 Unspecified osteoarthritis, unspecified site; M48.00 Spinal stenosis, site unspecified; I51.7 Cardiomegaly; E87.6 Hypokalemia; J44.9 Chronic obstructive pulmonary disease, unspecified; E66.9 Obesity, unspecified; G47.33 Obstructive sleep apnea (adult) (pediatric); G62.9 Polyneuropathy, unspecified; G89.29 Other chronic pain; M54.9 Dorsalgia, unspecified; Z79.899 Other long term (current) drug therapy; Z90.49 Acquired absence of other specified parts of digestive tract; Z82.49 Family history of ischemic heart disease and other diseases of the circulatory system; Z98.51 Tubal ligation status
CPT/HCPCS: 36415; 71010; 80048; 82550; 82553; 83735; 84439; 84443; 85025; 85027; 85610; 85730; 93005; 93010; 93306; 96374; 96375; J0360; J2270; J2405

== ENCOUNTER 2017-04-29 18:47 | Inpatient (IN) | payer MEDICARE ==
[2017-04-29 19:15] LABS: Basophils % (Auto) 0.3 % (0.0-1.8); Eosinophils % (Auto) 0.1 % (0.0-4.3); Hemoglobin 13.1 gm/dl (10.1-14.3); Mean Corpuscular HGB Conc 32 % (30-34); Mean Corpuscular Hemoglobin 26 pg (28-32); Mean Corpuscular Volume 82 fl (79-97); Platelet Count 326 K/mm3 (140-440); Red Cell Distribution Width 14.1 % (13.2-15.2); White Blood Count 14.9 K/mm3 (4.5-11.0)
[2017-04-29 19:33] LABS: Anion Gap 19 mmol/L; BUN/Creatinine Ratio 12; Blood Urea Nitrogen 13 mg/dL (7-17); Calcium 9.1 mg/dL (8.4-10.2); Carbon Dioxide 28 mmol/L (22-30); Chloride 99.5 mmol/L (98-107); Glucose 173 mg/dL (65-100); Potassium 4.1 mmol/L (3.6-5.0); Sodium 142 mmol/L (137-145)
[2017-04-30] MEDS ORDERED: APRESOLINE IV ONE (02:10)
[2017-04-30] MEDS ORDERED: ZOFRAN IV ONE (02:10)
[2017-04-30] MEDS ORDERED: MORPHINE IV ONE ×2 (02:10→03:00)
[2017-04-30] MEDS ORDERED: TORADOL IV ONE (02:11)
[2017-04-30] MEDS ORDERED: ECOTRIN PO ONE (02:12)
[2017-04-30] MEDS ORDERED: SUBLIMAZE IV ONE (02:52)
--- NOTE | 2017-04-30 04:09 | Emergency Department Report ---
ED Chest Pain HPI - General Chief Complaint: Chest Pain Stated Complaint: CHEST PAIN Time Seen by Provider: 04/30/17 01:43 Source: patient, EMS Mode of arrival: Wheelchair Limitations: No Limitations - History of Present Illness Initial Comments: 57-year-old female presents here with complaints of left-sided chest pain. Distal quadriceps just prior to arrival. She also complains of pain in her right gluteal region. She also has history of sciatica and hypertension. Chest pain is associated wishes of breath number nausea and diaphoresis. Chest pain radiates to her left upper arm MD Complaint: chest pain -: Gradual, This evening Onset: during rest Pain Location: left chest Pain Radiation: LUE Severity: moderate Severity scale (0 -10): 6 Quality: heaviness, pressure, squeezing Consistency: intermittent Improves With: nothing Worsens With: nothing re: nausea, diaphoresis, dyspnea. denies: vomting, sense of impending doom Other Symptoms: palpitations. denies: cough, fever, rash, acid taste in mouth, leg swelling Treatments Prior to Arrival: none Aspirin use within the Past 7 Days: (1) Yes - Related Data On Oral Contraceptives: No Home Medications Medication Instructions Recorded Confirmed Last Taken Gabapentin [Neurontin] 1 cap PO QAM 01/29/17 01/29/17 Unknown Gabapentin [Neurontin] 2 cap PO QPM 01/29/17 01/29/17 Unknown Ibuprofen [Motrin] 800 mg PO Q8HR PRN 01/29/17 01/29/17 Unknown Nortriptyline [Pamelor] 50 mg PO QAM 01/29/17 01/29/17 Unknown Nortriptyline [Pamelor] 100 mg PO QPM 01/29/17 01/29/17 Unknown Oxycodone HCl [oxyCODONE TAB] 10 mg PO BID PRN 01/29/17 01/29/17 Unknown Previous Rx's Medication Instructions Recorded Last Taken Type Apixaban [Eliquis] 5 mg PO Q12HR #60 tablet 01/31/17 Unknown Rx Carvedilol [Coreg] 12.5 mg PO BID #60 tablet 01/31/17 Unknown Rx Diltiazem Cd [Cardizem CD] 180 mg PO QDAY #30 capsule 01/31/17 Unknown Rx Doxazosin [Cardura] 2 mg PO QPM #30 tablet 01/31/17 Unknown Rx Valsartan [Diovan] 160 mg PO BID #60 tablet 01/31/17 Unknown Rx Allergies Allergy/AdvReac Type Severity Reaction Status Date / Time No Known Allergies Allergy Verified 04/29/17 18:49 Heart Score - HEART Score History: Moderately suspicious EKG: Non-specific Age: 45-65 Risk factors: 1-2 risk factors Troponin: < normal limit HEART Score: 4 - Critical Actions Critical Actions: 4-6 pts:12-16.6% risk of adverse cardiac event. Should be admitted ED Review of Systems ROS: Stated complaint: CHEST PAIN Other details as noted in HPI Comment: All other systems reviewed and negative Constitutional: diaphoresis, malaise, weakness. denies: chills, fever Eyes: denies: eye pain, eye discharge, vision change ENT: denies: throat pain, dental pain, hearing loss, epistaxis Respiratory: shortness of breath, SOB at rest. denies: cough, orthopnea, SOB with exertion Cardiovascular: chest pain, dyspnea on exertion, edema. denies: palpitations, syncope, paroxysmal nocturnal dyspnea Endocrine: no symptoms reported Gastrointestinal: nausea. denies: abdominal pain, vomiting, diarrhea, constipation, hematemesis, hematochezia Genitourinary: denies: urgency, dysuria, frequency, hematuria, discharge Musculoskeletal: denies: back pain, joint swelling, arthralgia, myalgia Skin: denies: lesions, change in color, change in hair/nails, pruritus Psychiatric: denies: anxiety, depression Hematological/Lymphatic: denies: easy bruising, swollen glands ED Past Medical Hx - Past Medical History Hx Hypertension: Yes (nonconpliant with meds) Additional medical history: Degenerative disc disease, arthritis - Surgical History Hx Appendectomy: Yes Additional Surgical History: Tubaligation and Uterine fibroids removed - Social History Smoking Status: Never Smoker Substance Use Type: None, Alcohol - Medications Home Medications: Home Medications Medication Instructions Recorded Confirmed Last Taken Type Gabapentin [Neurontin] 1 cap PO QAM 01/29/17 01/29/17 Unknown History Gabapentin [Neurontin] 2 cap PO QPM 01/29/17 01/29/17 Unknown History Ibuprofen [Motrin] 800 mg PO Q8HR PRN 01/29/17 01/29/17 Unknown History Nortriptyline [Pamelor] 50 mg PO QAM 01/29/17 01/29/17 Unknown History Nortriptyline [Pamelor] 100 mg PO QPM 01/29/17 01/29/17 Unknown History Oxycodone HCl [oxyCODONE TAB] 10 mg PO BID PRN 01/29/17 01/29/17 Unknown History Apixaban [Eliquis] 5 mg PO Q12HR #60 tablet 01/31/17 Unknown Rx Carvedilol [Coreg] 12.5 mg PO BID #60 tablet 01/31/17 Unknown Rx Diltiazem Cd [Cardizem CD] 180 mg PO QDAY #30 capsule 01/31/17 Unknown Rx Doxazosin [Cardura] 2 mg PO QPM #30 tablet 01/31/17 Unknown Rx Valsartan [Diovan] 160 mg PO BID #60 tablet 01/31/17 Unknown Rx ED Physical Exam - General Limitations: No Limitations General appearance: alert, in distress ([id number]) - Head Head exam: Present: atraumatic, normocephalic, normal inspection - Eye Eye exam: Present: normal appearance, PERRL, EOMI. Absent: scleral icterus, conjunctival injection, nystagmus - ENT ENT exam: Present: normal exam, normal orophraynx, mucous membranes moist - Neck Neck exam: Present: normal inspection, full ROM. Absent: tenderness, meningismus, lymphadenopathy - Respiratory Respiratory exam: Present: normal lung sounds bilaterally. Absent: respiratory distress, wheezes, rales, rhonchi, stridor, chest wall tenderness, accessory muscle use, decreased breath sounds, prolonged expiratory - Cardiovascular Cardiovascular Exam: Present: regular rate, normal rhythm, normal heart sounds - GI/Abdominal GI/Abdominal exam: Present: soft, distended (obese abdomen), normal bowel sounds. Absent: tenderness, guarding, rebound, hyperactive bowel sounds, hypoactive bowel sounds, organomegaly, mass - Rectal Rectal exam: Present: deferred - Extremities Exam Extremities exam: Present: normal inspection, full ROM, normal capillary refill , pedal edema (mild). Absent: tenderness, joint swelling - Back Exam Back exam: Present: normal inspection, tenderness (right region), muscle spasm ( right gluteal region). Absent: CVA tenderness (L) - Neurological Exam Neurological exam: Present: alert, oriented X3, CN II-XII intact, motor sensory deficit ED Course Vital Signs 04/29/17 04/30/17 04/30/17 18:50 01:00 01:05 Temperature 98.8 F 97.9 F Pulse Rate 78 68 68 Respiratory 18 14 13 Rate Blood Pressure 181/105 180/97 Blood Pressure 180/97 [Left] O2 Sat by Pulse 99 100 99 Oximetry 04/30/17 04/30/17 01:30 02:30 Temperature Pulse Rate 67 67 Respiratory 17 Rate Blood Pressure 156/80 172/69 Blood Pressure [Left] O2 Sat by Pulse 100 Oximetry - Consultations Consultation #1: 04/30/17 04:16 Discussed with hospitalist, she accepts patients admission YULI score - Yuli Score Age > 65: (0) No Aspirin use within the Past 7 Days: (1) Yes 3 or more CAD Risk Factors: (0) No 2 or more Angina events in past 24 hrs: (1) Yes Known CAD with more than 50% Stenosis: (0) No Elevated Cardiac Markers: (0) No ST Deviation Greater than 0.5mm: (0) No YULI Score: 2 ED Medical Decision Making - Lab Data Result diagrams: 04/29/17 19:01 04/29/17 19:01 - EKG Data -: EKG Interpreted by Me - EKG Data 04/30/17 04:17 700 and rate of 77 bpm, left coordination axis, prolonged QT interval, LVH with secondary residual abnormality. - Radiology Data Radiology results: image reviewed Critical Care Time: No Critical care attestation.: If time is entered above; I have spent that time in minutes in the direct care of this critically ill patient, excluding procedure time. ED Disposition Clinical Impression: Chest pain, Accelerated hypertension Disposition: -09 OP ADMIT IP TO THIS HOSP Is pt being admited?: Yes Does the pt Need Aspirin: Yes Condition: Stable Instructions: Chest Pain (ED), Hypertension (ED) Referrals: NICK MAYS MD [Primary Care Provider] - 3-5 Days Time of Disposition: 04:19
[2017-04-30] MEDS ORDERED: MILK OF MAGNESIA PO PRN (04:51)
[2017-04-30] MEDS ORDERED: DULCOLAX PR PRN (04:51)
[2017-04-30] MEDS ORDERED: MORPHINE IV PRN ×2 (04:51→10:30)
[2017-04-30] MEDS ORDERED: ZOFRAN IV PRN (04:51)
--- NOTE | 2017-04-30 04:54 | History and Physical Report ---
History of Present Illness Date of examination: 04/30/17 History of present illness: 57-year-old woman with a history of hypertension, A. fib, spinal stenosis comes to the emergency room complaints of chest pain located in the left substernal epigastric area which she describes as a dull pain, intermittent in nature, with Vannesa, aspirin, radiating to left arm, intensity 6/10. She denies shortness of breath, no nausea vomiting, diaphoresis or palpitation Review Of Systems: Constitutional: no weight loss Ears, eyes, nose, mouth and throat: no nasal congestion, no nasal discharge, no sinus pressure, blurry vision, diplopia Neck: No neck pain or rigidity. Cardiovascular: no orthopnea, palpitations Respiratory: No cough Gastrointestinal: abdominal pain, hematochezia Genitourinary : no dysuria, frequency , hematuria Musculoskeletal: no muscle ache Integumentary: no rash, no pruritis Neurological: no parathesias, focal weakness Endocrine: no cold or heat intolerance, no polyuria or polydipsia Hematologic/Lymphatic: no easy bruising, no easy bleeding, no gland swelling Allergic/Immunologic: no urticaria, no angioedema. PAST MEDICAL HISTORY:hypertension, A. fib, spinal stenosis PAST SURGICAL HISTORY: Appendectomy, tubal ligation, fibrotic FAMILY HISTORY:hypertension SOCIAL HISTORY: Social alcohol, no tobacco or DRUGS Medications and Allergies Allergies Allergy/AdvReac Type Severity Reaction Status Date / Time No Known Allergies Allergy Verified 04/29/17 18:49 Home Medications Medication Instructions Recorded Confirmed Last Taken Type Ibuprofen [Motrin] 800 mg PO Q8HR PRN 01/29/17 04/30/17 Unknown History Nortriptyline [Pamelor] 50 mg PO QAM 01/29/17 04/30/17 Unknown History Carvedilol [Coreg] 12.5 mg PO BID #60 tablet 01/31/17 04/30/17 Unknown Rx Doxazosin [Cardura] 2 mg PO QPM #30 tablet 01/31/17 04/30/17 Unknown Rx Aspirin BABY CHEW TAB 324 mg PO DAILY 04/30/17 04/30/17 Unknown History Cyclobenzaprine [Flexeril] 20 mg PO DAILY 04/30/17 04/30/17 Unknown History Exam - Physical Exam Narrative exam: Gen. appearance: Patient lying in bed in no acute distress HEENT: Normocephalic/atraumatic, pupils equal round reactive to light, extra alkaline movement intact, no scleral icterus, no JVD or thyromegaly or nodule, neck is supple, mucous membrane moist, no erythema or exudate Heart: S1-S2, regular rate and rhythm Lungs: Clear to auscultation bilateral breathing comfortable Abdomen: Positive bowel sounds, nontender, nondistended, no organomegaly Extremities: No edema, cyanosis, clubbing Neuro:: Oriented 3 , cranial nerves II-12 intact, speech, motor intact Skin: No rash, nodules, warm dry - Constitutional Vitals: Temp Pulse Resp BP Pulse Ox 97.9 F 76 18 143/71 99 04/30/17 01:05 04/30/17 04:00 04/30/17 04:00 04/30/17 04:00 04/30/17 04:00 Results - Labs CBC & Chem 7: 04/29/17 19:01 04/29/17 19:01 Labs: Abnormal lab results 04/29/17 04/29/17 Range/Units 19:01 19:01 WBC 14.9 H (4.5-11.0) K/mm3 MCH 26 L (28-32) pg Lymph % (Auto) 11.1 L (13.4-35.0) % Seg Neutrophils % 85.1 H (40.0-70.0) % Seg Neutrophils # 12.7 H (1.8-7.7) K/mm3 Glucose 173 H (65-100) mg/dL - Imaging and Cardiology EKG: image reviewed Chest x-ray: image reviewed Assessment and Plan Assessment Hypertensive urgency, malignant Chest pain status secondary to the above History of A. fib, now in sinus rhythm Plan Admit to medicine Start IV hydralazine Check cardiac enzymes, stress test, consult cardiology Start DVT prophylaxis, IV morphine, appropriate outpatient medications
[2017-04-30] MEDS ORDERED: MORPHINE ONE (09:10)
[2017-04-30] MEDS ORDERED: BABY ASPIRIN PO SCH (10:00)
[2017-04-30] MEDS: COREG PO SCH ×2 (11:16→23:05)
[2017-04-30] MEDS: LOVENOX SUB-Q SCH (11:17)
[2017-04-30] MEDS: PAMELOR PO SCH (11:17)
[2017-04-30] MEDS: FLEXERIL PO SCH (11:17)
--- NOTE | 2017-04-30 12:54 | Consultation ---
History of Present Illness Consult date: 04/30/17 Consult reason: chest pain History of present illness: The patient is a 56-year-old woman with a history of hypertension, COPD, obesity with obstructive sleep apnea. She also has a history of paroxysmal atrial flutter but patient admits to noncompliance with eliquis therapy as an outpatient due to cost. Recent echocardiogram demonstrates normal left ventricle systolic function, ejection fraction 60-65%. She is admitted to the hospital at this time with chest pain. Her ECG is a sinus rhythm; no acute ischemic changes. She was planned for a persantine thallium stress test today but due to claustrophobia this was canceled. Cardiology consultation was requested. Medications and Allergies Allergies Allergy/AdvReac Type Severity Reaction Status Date / Time No Known Allergies Allergy Verified 04/29/17 18:49 Home Medications Medication Instructions Recorded Confirmed Last Taken Type Ibuprofen [Motrin] 800 mg PO Q8HR PRN 01/29/17 04/30/17 Unknown History Nortriptyline [Pamelor] 50 mg PO QAM 01/29/17 04/30/17 Unknown History Carvedilol [Coreg] 12.5 mg PO BID #60 tablet 01/31/17 04/30/17 Unknown Rx Doxazosin [Cardura] 2 mg PO QPM #30 tablet 01/31/17 04/30/17 Unknown Rx Aspirin BABY CHEW TAB 324 mg PO DAILY 04/30/17 04/30/17 Unknown History Cyclobenzaprine [Flexeril] 20 mg PO DAILY 04/30/17 04/30/17 Unknown History Active Meds: Active Medications Acetaminophen (Tylenol) 650 mg PO Q4H PRN PRN Reason: Pain MILD(1-3)/Fever >100.5/HERNANDEZ Aspirin (Baby Aspirin) 324 mg PO DAILY [facility] Last Admin: 04/30/17 11:16 Dose: 324 mg Bisacodyl (Dulcolax) 10 mg [place] QDAY PRN PRN Reason: Constipation unrelieved by MOM Carvedilol (Coreg) 12.5 mg PO BID [facility] Last Admin: 04/30/17 11:16 Dose: 12.5 mg Cyclobenzaprine HCl (Flexeril) 20 mg PO QAM [facility] Last Admin: 04/30/17 11:17 Dose: 20 mg Doxazosin Mesylate (Cardura) 2 mg PO QPM [facility] Enoxaparin Sodium (Lovenox) 40 mg SUB-Q QDAY [facility] Last Admin: 04/30/17 11:17 Dose: 40 mg Lorazepam (Ativan) 1 mg IV ONCE ONE Stop: 05/01/17 08:01 Magnesium Hydroxide (Milk Of Magnesia) 30 ml PO Q4H PRN PRN Reason: Constipation Morphine Sulfate (Morphine) 2 mg IV Q4H PRN PRN Reason: Pain, Moderate (4-6) Nortriptyline HCl (Pamelor) 50 mg PO QAM [facility] Last Admin: 04/30/17 11:17 Dose: 50 mg Ondansetron HCl (Zofran) 4 mg IV Q8H PRN PRN Reason: N/V unrelieved by Reglan Physical Examination Vital Signs Temp Pulse Resp BP Pulse Ox 98.8 F 78 18 181/105 99 04/29/17 18:50 04/29/17 18:50 04/29/17 18:50 04/29/17 18:50 04/29/17 18:50 General appearance: no acute distress HEENT: Positive: PERRL Neck: Positive: trachea midline Cardiac: Positive: Reg Rate and Rhythm Results 04/29/17 19:01 04/29/17 19:01 Assessment and Plan Chest pain Hx of paroxysmal Aflutter pt admits to noncompliance with eliquis therapy as an outpatient due to cost. Hypertension Sleep Apnea Normal left ventricle systolic function, ejection fraction 60-65% on echo 01/2017
--- NOTE | 2017-04-30 22:16 | Event Note ---
Date: 04/30/17 patient seen and examined, reports improvement in chest pain and left amr pain. BP better improved. stress test in AM.
[2017-04-30] MEDS: CARDURA PO SCH (23:05)
[2017-05-01] MEDS: TYLENOL PO PRN ×2 (00:53→08:37)
[2017-05-01 04:40] LABS: Basophils % (Auto) 0.7 % (0.0-1.8); Eosinophils % (Auto) 1.2 % (0.0-4.3); Hematocrit 38.3 % (30.3-42.9); Hemoglobin 12.4 gm/dl (10.1-14.3); Mean Corpuscular HGB Conc 32 % (30-34); Mean Corpuscular Hemoglobin 26 pg (28-32); Mean Corpuscular Volume 82 fl (79-97); Platelet Count 299 K/mm3 (140-440); Red Blood Count 4.68 M/mm3 (3.65-5.03); Red Cell Distribution Width 14.1 % (13.2-15.2); White Blood Count 12.4 K/mm3 (4.5-11.0)
[2017-05-01 05:00] LABS: Anion Gap 15 mmol/L; BUN/Creatinine Ratio 24; Blood Urea Nitrogen 19 mg/dL (7-17); Calcium 8.7 mg/dL (8.4-10.2); Carbon Dioxide 31 mmol/L (22-30); Chloride 101.6 mmol/L (98-107); Glucose 124 mg/dL (65-100); Potassium 4.2 mmol/L (3.6-5.0); Sodium 143 mmol/L (137-145)
[2017-05-01] MEDS ORDERED: ATIVAN IV SCH (08:00)
[2017-05-01] MEDS ORDERED: LEXISCAN IV ONE ×2 (09:57→10:01)
--- NOTE | 2017-05-01 11:11 | Progress Note ---
Assessment and Plan - Patient Problems (1) Paroxysmal atrial flutter Current Visit: Yes Status: Acute Plan to address problem: The patient declined to take previously prescribed Eliquis to excessive cost. We will initiate therapy with Coumadin 5 mg daily. (2) Chest pain Current Visit: Yes Status: Acute Qualifiers: Chest pain type: C Ischemic chest pain type: I Plan to address problem: Chest pain is atypical, she is status post Persantine thallium stress test today , results pending. Subjective Date of service: 05/01/17 Interval history: The patient is comfortable, no further cardiac complaints. She has completed a Persantine thallium stress test, results pending. Objective Vital Signs Temp Pulse Resp BP BP Pulse Ox 05/01/17 05:47 81 05/01/17 05:02 98.6 F 87 20 138/69 98 04/30/17 23:42 98.3 F 69 18 133/82 04/30/17 23:05 75 147/89 04/30/17 19:25 98.3 F 75 20 147/89 96 04/30/17 19:24 98.3 F 81 20 147/89 96 04/30/17 16:23 81 04/30/17 16:17 71 96 04/30/17 16:16 98.5 F 76 18 132/77 96 04/30/17 15:00 87 17 155/85 88 04/30/17 14:00 71 16 129/68 98 04/30/17 13:00 80 12 152/85 04/30/17 12:00 69 14 160/79 99 04/30/17 11:16 81 155/77 - Physical Examination General: Appears Well, No Apparent Distress HEENT: Positive: PERRL Neck: Positive: trachea midline Cardiac: Positive: Reg Rate and Rhythm Lungs: Positive: Decreased Breath Sounds Neuro: Positive: Grossly Intact Abdomen: Positive: Soft Skin: Positive: Clear Extremities: Absent: edema - Labs and Meds CBC 05/01/17 Range/Units 04:21 WBC 12.4 H (4.5-11.0) K/mm3 RBC 4.68 (3.65-5.03) M/mm3 Hgb 12.4 (10.1-14.3) gm/dl Hct 38.3 (30.3-42.9) % Plt Count 299 (140-440) K/mm3 Lymph # 4.2 (1.2-5.4) K/mm3 [place] # 0.8 (0.0-0.8) K/mm3 Eos # 0.2 (0.0-0.4) K/mm3 Baso # 0.1 (0.0-0.1) K/mm3 Comprehensive Metabolic Panel 05/01/17 Range/Units 04:21 Sodium 143 (137-145) mmol/L Potassium 4.2 (3.6-5.0) mmol/L Chloride 101.6 (98-107) mmol/L Carbon Dioxide 31 H (22-30) mmol/L BUN 19 H (7-17) mg/dL Creatinine 0.8 (0.7-1.2) mg/dL Glucose 124 H (65-100) mg/dL Calcium 8.7 (8.4-10.2) mg/dL - Imaging and Cardiology EKG: image reviewed
--- NOTE | 2017-05-01 11:38 | Discharge Summary ---
Providers - Providers Date of Admission: 04/30/17 04:51 Attending physician: HIEU MONTALVO MD Primary care physician: DAVON Hospitalization Condition: Stable Disposition: DC-01 TO HOME OR SELFCARE Exam - Constitutional Vitals: Temp Pulse Resp BP Pulse Ox 98.6 F 81 20 138/69 98 05/01/17 05:02 05/01/17 05:47 05/01/17 05:02 05/01/17 05:02 05/01/17 05:02 Plan Activity: advance as tolerated, fall precautions Diet: low fat Special Instructions: record daily weights, record daily BP diary Additional Instructions: check INR in 3 days with Primary care doctor or with crochet beader Follow up with: NICK MAYS MD [Primary Care Provider] - 3-5 Days ALVERTO WINTERS MD [Staff Physician] - 7 Days Prescriptions: Warfarin [Coumadin] 5 mg PO DAILY@1700 #30 tablet
[2017-05-01] MEDS: LOVENOX SUB-Q SCH (11:50)
[2017-05-01] MEDS: PAMELOR PO SCH (11:50)
[2017-05-01] MEDS: COREG PO SCH (11:51)
[2017-05-01] MEDS: FLEXERIL PO SCH (11:52)
[2017-05-01] MEDS ORDERED: ECOTRIN PO SCH (12:00)
[2017-05-01 14:37] LABS: INR 0.99 (0.87-1.13)
[2017-05-01] MEDS ORDERED: COUMADIN PO SCH (17:00)
[2017-05-01] MEDS: CARDURA PO SCH (17:00)
[2017-05-01 17:02] VITALS: BP 144/81
--- NOTE | 2017-05-02 09:23 | Treadmill Report ---
THALLIUM STRESS TEST LEFT VENTRICLE: Left ventricular chamber size is within normal spread. Perfusion study demonstrates homogeneous uptake of the tracer in all the segments, no significant perfusion defects identified. Gated analysis demonstrates normal left ventricular systolic function, ejection fraction 52%. CONCLUSION: Normal myocardial perfusion study. JOB# [id number] CA/NTS
== END 2017-05-01 19:00 | disposition home or self-care (01) | DRG 305 ==
LOC: ED 18:47 → 4A 04-30 04:51
PROVIDERS: ADMIT Internal Medicine; ATTEND Internal Medicine
DX: I16.0 Hypertensive urgency (principal); I48.92 Unspecified atrial flutter; Z68.42 Body mass index [BMI] 45.0-49.9, adult; I10 Essential (primary) hypertension; M19.90 Unspecified osteoarthritis, unspecified site; I48.91 Unspecified atrial fibrillation; F40.240 Claustrophobia; J44.9 Chronic obstructive pulmonary disease, unspecified; E66.9 Obesity, unspecified; G47.33 Obstructive sleep apnea (adult) (pediatric); Z79.899 Other long term (current) drug therapy; Z98.51 Tubal ligation status; Z82.49 Family history of ischemic heart disease and other diseases of the circulatory system; Z72.89 Other problems related to lifestyle; Z91.14 Patient's other noncompliance with medication regimen
CPT/HCPCS: 36415; 78452; 80048; 84484; 85025; 85610; 93005; 93010; 93017; 96372; 96374; 96375; A9502; J0360; J1650; J1885; J2060; J2270; J2405; J2785; J3010